=== PATIENT | female | born 1955 | race Caucasian/White ===

== ENCOUNTER 2024-05-15 02:24 | Emergency (ER) | payer OTHER, SELFPAY ==
[2024-05-15 02:26] VITALS: BP 205/105; PULSE 77; RESP 18; TEMP 36.1; O2SAT 95; BMI 34.8
[2024-05-15 03:15] VITALS: BP 184/94; PULSE 68; RESP 17; O2SAT 98
--- NOTE | 2024-05-15 03:17 | EKG12_ITS ---
Test Reason : DIZZY Blood Pressure : / mmHG Vent. Rate : 067 BPM Atrial Rate : 067 BPM P-R Int : 174 ms QRS Dur : 092 ms QT Int : 434 ms P-R-T Axes : 043 012 032 degrees QTc Int : 458 ms Normal sinus rhythm Nonspecific ST abnormality Abnormal ECG Confirmed by SEAN ARROYO, BRANDON ([id number]), editorial director NOAM RADFORD ([id number]) on 05/15/2024 11:32:05 AM Referred By: Confirmed By:BRANDON ESTRADA MD
--- NOTE | 2024-05-15 03:18 | CT_ITS ---
INDICATION: dizzy EXAMINATION: CT BRAIN - CT Head or Brain W/O Contrast Injection TECHNIQUE: Multiple axial images were obtained of the head without intravenous contrast. The protocol utilizes one or more of the following dose reduction techniques: automated exposure control, adjustment of mA and/or kV according to patient size,and/or use of iterative reconstruction technique. IV Contrast dosage and agent: None. RADIATION DOSAGE (If Supplied By Facility): CTDIvol = ( 44.99 ) mGy, DLP = ( 745.49 ) mGycm COMPARISON: None. FINDINGS: BRAIN: No acute bleed. No edema. Jiménez-white matter differentiation is maintained. VENTRICLES AND SULCI: Not dilated. EXTRA-AXIAL: No hemorrhage, fluid collection, or mass. CALVARIUM / SKULL BASE: Unremarkable. FACE/SINUSES: Unremarkable. SOFT TISSUES: Unremarkable. CT/Brain/Head without Contrast IMPRESSION: No acute abnormality. CT angiogram and/or MRI may be helpful to evaluate for acute infarct as clinically indicated. Electronically Signed: Estefani Soto MD at 4:32 EDT ,
[2024-05-15] MEDS: diazePAM 5 MG Tablet PO (03:27)
[2024-05-15 03:34] LABS: Bacteria 0 SEEN /hpf (None Seen); Mucous, Urine 0 SEEN /hpf (<or=2+); Red Blood Cells-Urine 0 SEEN /hpf (0-5); Squamous Epithelial Cells - UA 0 SEEN /hpf (5-10); White Blood Cells 0 SEEN /hpf (0-5)
[2024-05-15] MEDS: 0.9% Normal Saline (500mL Bag) 500 ML 999 ML IV (03:34)
[2024-05-15 03:44] LABS: Absolute Lymphocyte Count 1.29 X10^3/uL (0.83-4.51); Absolute Neutrophil Count 7.9 X10^3/uL (2.0-7.7); Basophil# 0.03 X10^3/uL; Basophil% 0.3 % (0-1); Eosinophil# 0.05 X10^3/uL; Eosinophils% 0.5 % (0-5); Hematocrit 39.8 % (37-47); Hemoglobin 13.5 g/dL (12.0-15.0); Lymphocyte # 1.29 X10^3/ul (0.83-4.51); Lymphocyte % 13.1 % (19-41); Mean Corp Hgb Conc 33.9 g/dL (32-36); Mean Corpuscular Hgb 31.3 pg (27.0-32.0); Mean Corpuscular Volume 92.3 fL (81-99); Mean Platelet Vol. 8.8 fl (6.2-12.0); Monocyte# 0.49 X10^3/uL; NRBC Flagged by Analyzer 0 % (0-5); Neutrophil # 7.91 X10^3/uL (2.7-7.7); Neutrophil % 80.6 % (47-70); Platelet Count 236 K/mm3 (150-450); RBC Distribution Width CV 11.9 % (11.6-14.6); Red Blood Count 4.31 M/mm3 (4.2-5.4); White Blood Count 9.8 K/mm3 (4.4-11.0)
[2024-05-15 03:45] LABS: Color, Urine Yellow (Yellow); Glucose, Dipstick 100 mg/dl (Normal); Ketone-Dipstick 15 mg/dl (Negative); Leukocyte Esterase-Dipstick 100 /ul (Negative); Nitrite-Dipstick Negative (Negative); Occult Blood-Urine 10 /ul (Negative); Protein-Dipstick 15 mg/dl (Negative); Urine Bilirubin Dipstick Negative (Negative); Urine Clarity Clear (Clear); Urine Urobilinogen Normal (Normal)
[2024-05-15 04:02] LABS: Anion Gap 7 (5-15); BUN 8 mg/dL (7-18); BUN/Creat Ratio 12.9 RATIO (10-20); Calcium,Total 8.9 mg/dL (8.5-10.1); Chloride 94 mmol/L (98-107); Creatinine, Serum 0.62 mg/dL (0.55-1.02); EST Glomerular Filtration Rate 101 mL/min (>60); Est Glom Filt Rate - Afr Amer 122 mL/min (>60); Estimated Creatinine Clearance 67.71 ml/min; Glucose 206 mg/dL (74-106); Magnesium 1.9 mg/dL (1.6-2.6); Potassium 3.4 mmol/L (3.5-5.1); Sodium Level 129 mmol/L (136-145); Troponin-I HS 4 pg/mL (3.0-54.0)
[2024-05-15 05:00] VITALS: BP 192/99; PULSE 66; RESP 15; O2SAT 98
--- NOTE | 2024-05-15 05:27 | EDS_ITS ---
HPI History of Present Illness Chief Complaint: Dizziness Informant: patient and spouse/S.O. Narrative Narrative: Patient is a 68-year-old female with hypertension and OCD. She states that beginning around 1 PM she noticed bouts of dizziness which she describes more as a sense of motion. She states the symptoms will occur or worsen if she changes positions or moves her head. She states if she lies still that the symptoms improved. She denies any head injury or headache associated with this. She does admit to tinnitus but states this is chronic in nature. She states that she does have hypertension but has not been taking medication for it. She states that she has been trying home remedies to get the symptoms to resolve but if they have not done so and therefore she comes in for evaluation [facility] Medical History (Updated 05/15/24 @ 05:[address] Shaq Steinberg, DO) Hiatal hernia Hypertension OCD (obsessive compulsive disorder) Home Medications ?Medication ?Instructions ?Recorded ?Last Taken ?Type diazepam 2 mg tablet (Valium) 2 mg PO TID PRN Dizziness/vertigo 05/15/24 Unknown Rx #15 tabs Allergy/AdvReac Type Severity Reaction Status Date / Time No Known Allergies Allergy Verified 05/15/24 02:30 Social History Smoking Status: Never smoker ROS ROS ED Constitutional Constitutional ED: Denies chills or fever(s) Eyes Eyes: Denies change in vision or diplopia ENT ENT ED: Denies sore throat Cardiovascular Cardiovascular: Denies chest pain Respiratory/Chest Respiratory/Chest: Denies cough or dyspnea Gastrointestinal Gastrointestinal: Reports nausea; Denies abdominal pain, diarrhea or vomiting Genitourinary Genitourinary ED: Denies dysuria Musculoskeletal Musculoskeletal: Denies myalgias Integumentary Denies rash Neurologic Neurologic: Reports other Details: Positive dizziness ; Denies headache(s) Hematologic/Lymphatic Hematologic/Lymphatic: Denies easy bleeding or easy bruising EXAM Physical Exam Const Vital Signs: 05/15/24 02:26 05/15/24 03:15 Temperature 97 F L Temperature Source Temporal Pulse Rate 77 68 Respiratory Rate 18 17 Blood Pressure 205/105 H 184/94 H Blood Pressure Mean 138 124 Pulse Ox 95 98 Oxygen Delivery Method Room Air Room Air Positive well nourished and well developed General Appearance ED: well developed; Negative for pallor HEENT Reports TM's clear and moist mucous membranes HEENT Narrative: Normocephalic atraumatic Tympanic Membrane ED: Yes TM's clear bilateral (No cerumen impaction bilaterally no signs of otitis media or labyrinthitis) Eyes PERRL and EOMs intact bilaterally General Eye ED: Negative for scleral icterus Neck supple Resp normal respiratory effort and clear to auscultation bilaterally Cardio regular rate and regular rhythm GI normal to inspection, nondistended, normoactive bowel sounds, non-tender, non- distended and no masses GI Narrative: No voluntary guarding or rigidity or pulsatile mass Auscultation: normoactive bowel sounds Palpation: soft Extremity normal to inspection Neuro oriented x3, CN's II-XII intact bilaterally and no sensory deficits noted Neuro Narrative: No pronator drift no dysmetria no truncal ataxia. NIH stroke scale score of 0 There is horizontal nystagmus noted Positive Hallpike Yina exam on left. Sensorium / Orientation: alert Motor Exam: strength 5/5 throughout Psych mental status grossly normal Skin no rashes or lesions noted and skin turgor normal General Skin Exam: Negative for jaundice or pallor MDM MDM MDM Narrative Medical decision making narrative: Patient arrived to the ER hypertensive but has a past medical history of this and has not been on medication. Her report of dizziness is more of motion and concerning for peripheral vertigo as it does worsen with position change and resolves/improves at rest. In order to rule out endorgan damage secondary to the hypertension or potential cause of the vertigo basic labs were obtained. CT of the head revealed no tumor or bleed or mass. Blood work revealed no acute blood loss anemia or acute kidney injury or clinically significant electrolyte abnormality. Urine also showed no overt signs of infection. Patient was treated with oral Valium and after doing so had improvement of her nystagmus and dizziness and was able to ambulate with a steady gait. Therefore at this time with workup revealing no signs of endorgan damage from hypertension head CT revealed no obvious intracranial pathology such as bleed or mass and patient having improvement of symptoms with medication she is otherwise safe for discharge History & Record Review Discussion w/independent historian: Patient and Significant other Lab Data Attestation: I reviewed the patient's lab results. Labs: Laboratory Results - last 24 hr 05/15/24 05/15/24 03:30 03:35 WBC 9.8 RBC 4.31 Hgb 13.5 Hct 39.8 MCV 92.3 MCH 31.3 MCHC 33.9 RDW Std Deviation 41.0 RDW Coeff of [place] 11.9 Plt Count 236 MPV 8.8 Immature Gran % (Auto) 0.500 Neut % (Auto) 80.6 H Lymph % (Auto) 13.1 L [place] % (Auto) 5.0 Eos % (Auto) 0.5 Baso % (Auto) 0.3 Absolute Neuts (auto) 7.9 H Absolute Lymphs (auto) 1.29 Nucleated RBC % 0 Sodium 129 L Potassium 3.4 L Chloride 94 L Carbon Dioxide 28.0 Anion Gap 7 BUN 8 Creatinine 0.62 Estim Creat Clear Calc 67.71 Est GFR (MDRD) Af Amer 122 Est GFR (MDRD) Non-Af 101 BUN/Creatinine Ratio 12.9 Glucose 206 H Calcium 8.9 Magnesium 1.9 Troponin I High Sens 4 Urine Color Yellow Urine Clarity Clear Urine pH 7.0 Ur Specific Reva 1.010 Urine Protein 15 H Urine Glucose (UA) 100 H Urine Ketones 15 H Urine Occult Blood 10 H Urine Nitrite Negative Urine Bilirubin Negative Urine Urobilinogen Normal Ur Leukocyte Esterase 100 H Urine RBC 0 SEEN Urine WBC 0 SEEN Ur Squamous Epith Cells 0 SEEN Urine Bacteria 0 SEEN Urine Mucus 0 SEEN Radiography Diagnostic Testing: Clinical Impression(s) from Imaging Studies Brain CT 05/15/24 03:18 IMPRESSION: No acute abnormality. CT angiogram and/or MRI may be helpful to evaluate for acute infarct as clinically indicated. Electronically Signed: Estefani Soto MD at 4:32 EDT Reading Location ID and State: [address] [place] [address] Tel , Service support , Discharge Plan Triage Chief Complaint: Dizziness ED Provider: Shaq Steinberg Dx/Rx/DC Orders Clinical Impression: Peripheral vertigo, Hypertension Instructions: Hypertension Dc, ED Vertigo, Unspecified Prescriptions: New diazepam [Valium] 2 mg tablet 2 mg PO TID PRN (Reason: Dizziness/vertigo) Qty: 15 0RF Primary Care Provider: Iker Martins Referrals: Iker Martins DO [Primary Care Provider] - Activity Restrictions/Additional Instructions: Please take the prescribed medication as directed to help control any further dizzy/vertigo symptoms and return to the ER should you have any further concerns Print Language: Tamazight Disposition Disposition: Home, Self Care Discharge Date/Time: 05/15/24 05:38
[2024-05-15 05:37] VITALS: BP 164/80; PULSE 68; RESP 18; TEMP 36.7; O2SAT 99
== END 2024-05-15 05:38 | disposition home or self-care (01) ==
PROVIDERS: Emergency Provider Emergency Medicine; PCP Family Medicine; Visit Provider Emergency Medicine
DX: R42 Dizziness and giddiness (principal); I10 Essential (primary) hypertension
CPT/HCPCS: 70450; 80048; 81001; 83735; 84484; 85025; 93005; 96360; 99284; J7040; A4216